=== PATIENT | female | born 1975 | race Caucasian/White ===

== ENCOUNTER 2022-08-05 06:13 | Day surgery (SDC) | payer BC ==
[2022-08-03 11:19] LABS: BASOPHILS % (AUTO) 0.6 % (0.0-2.0); EOSINOPHILS # (AUTO) 0.1 K/uL (0-0.4); HEMATOCRIT 29.1 % (36-48); HEMOGLOBIN 9.2 g/dL (12.0-16.0); LYMPHOCYTES # (AUTO) 2.1 K/uL (2.5-16.5); LYMPHOCYTES % (AUTO) 39.3 % (20.5-51.1); MEAN CORPUSCULAR HEMOGLOBIN 22 pg (27-31); MEAN CORPUSCULAR HGB CONC 32 g/dL (33-37); MEAN CORPUSCULAR VOLUME 68.9 fL (80-94); MONOCYTES # (AUTO) 0.4 K/uL (0.8-1.0); MONOCYTES % (AUTO) 7.1 % (1.7-9.3); NEUTROPHILS # (AUTO) 2.7 K/uL (1.8-7.7); PLATELET COUNT (AUTO) 331 K/uL (140-450); RED BLOOD CELL COUNT(AUTO) 4.22 MIL/uL (4.20-5.40); RED CELL DISTRIBUTION WIDTH 16.7 % (11.6-13.7); WHITE BLOOD COUNT (AUTO) 5.3 K/uL (4.8-10.8)
[2022-08-03 11:40] LABS: ALBUMIN 3.7 g/dL (3.4-5.0); ANION GAP 12.1 (8-16); CARBON DIOXIDE 26.3 mmol/L (21-32); CREATININE 0.5 mg/dL (0.6-1.3); POTASSIUM 3.4 mmol/L (3.5-5.1); TOTAL BILIRUBIN 0.3 mg/dL (0.0-1.0)
[~2022-08-05] VITALS: Ht 147.3 cm; Wt 65.8 kg
== END 2022-08-05 09:45 | disposition home or self-care (01) ==
LOC: MDS 06:13 → MMU 06:14 → MDS 09:45
PROVIDERS: ATTEND Surgery
DX: N64.89 Other specified disorders of breast (principal); Z53.8 Procedure and treatment not carried out for other reasons
CPT/HCPCS: 36415; 71045; 80053; 84702; 85025; 93005; J0690; J7060

== ENCOUNTER 2022-08-06 11:14 | Day surgery (SDC) | payer BC ==
[~2022-08-06] VITALS: Ht 147.3 cm; Wt 65.8 kg
[2022-08-06] MEDS ORDERED: LIDOCAINE 1% 500 MG/50 ML VIAL ONE (13:35)
[2022-08-06] MEDS ORDERED: BUPIVACAINE-MPF/EPI 0.25% 30 ML VIAL INJ ONE (13:35)
[2022-08-06] MEDS ORDERED: BUPIVACAINE-MPF 0.25% 30 ML VIAL INJ ONE (13:37)
[2022-08-06] MEDS ORDERED: DESFLURANE 240 ML BTL INH ONE (13:53)
[2022-08-06] MEDS ORDERED: PROPOFOL 200 MG/20 ML VIAL IV ONE (13:54)
[2022-08-06] MEDS ORDERED: fentaNYL citrate 0.05 MG/ML VIAL ONE (14:01)
[2022-08-06] MEDS ORDERED: ONDANSETRON 4 MG/2 ML VIAL ONE (14:02)
[2022-08-06] MEDS ORDERED: KETOROLAC 30 MG/ML VIAL ONE (14:02)
[2022-08-06] MEDS ORDERED: MORPHINE SULFATE 2 MG/ML SYR IVP PRN (14:30)
[2022-08-06] MEDS ORDERED: HYDROmorphone 1 MG/ML AMP IVP PRN (14:30)
[2022-08-06] MEDS ORDERED: MORPHINE SULFATE 4 MG/ML SYR IV PRN (14:30)
[2022-08-06] MEDS ORDERED: ONDANSETRON 4 MG/2 ML VIAL IV PRN (14:30)
== END 2022-08-06 15:45 | disposition home or self-care (01) ==
LOC: MDS 11:14 → MMU 11:46 → MDS 15:45
PROVIDERS: ATTEND Surgery
DX: N63.23 Unspecified lump in the left breast, lower outer quadrant (principal)
CPT/HCPCS: 19120; 88307; J0690; J1885; J2405; J2704; J3010; J3490; J7060; J7120; J2001